=== PATIENT | female | born 2000 ===

== ENCOUNTER → 2022-04-23 | Outpatient (CLI) | payer BC ==
[2022-04-23 17:46] LABS: Basophils # (A) 0.05 X 10*3/uL (0.00-0.10); Basophils % (A) 0.7 %; Eosinophils # (A) 0.11 X 10*3/uL (0.04-0.35); Eosinophils % (A) 1.6 %; HCT 42.8 % (37.2-46.3); HGB 14.1 g/dL (12.0-15.0); Immature Grans, Automated 0.1 %; Lymphocytes # (A) 2.53 X 10*3/uL (0.90-5.00); Lymphocytes % (A) 35.8 %; MCH 31.7 pg (27.0-32.0); MCHC 32.9 g/dL (32.0-37.0); MCV 96.2 fL (80.0-97.0); Monocytes # (A) 0.51 X 10*3/uL (0.20-1.00); Monocytes % (A) 7.2 %; NRBC Per 100 WBC 0 /100 WBCS (0.0-0.0); Neutrophils # (A) 3.85 X 10*3/uL (1.80-7.70); Neutrophils % (A) 54.6 %; Platelet Count 558 X 10*3/uL (140-440); RBC 4.45 X 10*6/uL (4.10-5.20); RDW 11.7 % (11.5-14.5); WBC 7.06 X 10*3/uL (4.50-10.00)
== END | disposition home or self-care (01) ==
LOC: LABWHC1 11:03
PROVIDERS: ATTEND Internal Medicine
DX: D75.839 Thrombocytosis, unspecified (principal)
CPT/HCPCS: 36415; 85025

== ENCOUNTER → 2023-07-10 | Outpatient (CLI) | payer BC ==
--- NOTE | 2023-07-10 16:50 | CT ---
EXAMINATION TYPE: CT abdomen pelvis w con CT DLP: 1343 mGycm, Automated exposure control for dose reduction was used. DATE OF EXAM: 07/10/2023 4:30 PM COMPARISON: None CLINICAL INDICATION:Female, 22 years old with history of R10.30 LOWER ABD PAIN; low abd pain x 1 week . TECHNIQUE: Axial CT abdomen pelvis w con;Sagittal and coronal reformats were created on a separate w orkstation. Contrast used:100 cc mL of Isovue 370 with IV Contrast, (none if empty) Oral contrast used: with Oral Contrast (none if empty) FINDINGS: LOWER CHEST: Unremarkable ABDOMEN LIVER: Unremarkable GALLBLADDER AND BILE DUCTS: Unremarkable. PANCREAS: Unremarkable. SPLEEN: Unremarkable. ADRENAL GLANDS: Unremarkable. KIDNEYS AND URETERS: No evidence of hydronephrosis or renal calculus. The ureters are unremarkable. PELVIS BLADDER: Unremarkable REPRODUCTIVE: Asymmetrically enlarged left ovary compared to the right. Left measuring 25 x 21 mm the right measuring 9 x 16 mm. Multiple follicle changes are seen bilaterally. ABDOMEN & PELVIS STOMACH AND BOWEL: No evidence of bowel obstruction. PERITONEUM/RETROPERITONEUM: No evidence of pneumoperitoneum or free fluid. VASCULATURE: No evidence of aortic aneurysm. There is narrowing of the left renal vein as it crosses the aorta between the aorta and the superior mesenteric artery. With engorgement of the left gonadal vein. Multiple tortuous vessels are seen in the pelvis. MUSCULOSKELETAL: No acute osseous abnormalities LYMPH NODES: No gross evidence for lymphadenopathy. SOFT TISSUE/ABDOMINAL WALL: Unremarkable IMPRESSION: 1. 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 2. No additional acute process visualized.
[2023-07-11 04:25] LABS: ALT 16 U/L (8-44); AST 21 U/L (13-35); Albumin 4.8 g/dL (3.8-4.9); Alkaline Phosphatase 55 U/L (41-126); BUN/Creat Ratio 13.83 Ratio (12.00-20.00); Blood Urea Nitrogen 8.3 mg/dL (9.0-27.0); C Reactive Protein <0.30 mg/dL (0.00-0.80); Calcium 10.4 mg/dL (8.7-10.3); Carbon Dioxide 27.4 mmol/L (21.6-31.8); Chloride 96 mmol/L (96-109); Globulin 3.2 g/dL (1.6-3.3); Glucose 81 mg/dL (70-110); Potassium 4.6 mmol/L (3.5-5.5); Sodium 132 mmol/L (135-145); Total Bilirubin 0.4 mg/dL (0.3-1.2)
[2023-07-11 05:00] LABS: Basophils # (A) 0.08 X 10*3/uL (0.00-0.10); Basophils % (A) 0.8 %; Eosinophils # (A) 0.12 X 10*3/uL (0.04-0.35); Eosinophils % (A) 1.2 %; HCT 41.4 % (37.2-46.3); HGB 13.5 g/dL (12.0-15.0); Lymphocytes # (A) 2.74 X 10*3/uL (0.90-5.00); Lymphocytes % (A) 26.9 %; MCHC 32.6 g/dL (32.0-37.0); MCV 98.1 FL (80.0-97.0); Mean Platelet Volume 9.5 FL (9.5-12.2); Monocytes # (A) 0.66 X 10*3/uL (0.20-1.00); Monocytes % (A) 6.5 %; NRBC Per 100 WBC 0 X 10*3/uL (0.00-0.01); Neutrophils # (A) 6.56 X 10*3/uL (1.80-7.70); Neutrophils % (A) 64.4 %; Platelet Count 559 X 10*3/uL (140-440); RBC 4.22 X 10*6/uL (4.10-5.20); RDW 11.9 % (11.5-14.5); WBC 10.18 X 10*3/uL (4.50-10.00)
[2023-07-11 05:24] LABS: Erythrocyte Sedimentation Rate 12 mm/Hr (0-20)
== END | disposition home or self-care (01) ==
LOC: RADCTMAIN 14:25
PROVIDERS: ATTEND Nurse Practitioner
DX: R10.30 Lower abdominal pain, unspecified (principal)
CPT/HCPCS: 80053; 85652; 85025; 86140; 74177; Q9967

== ENCOUNTER 2023-10-24 20:02 | Emergency (ER) | payer BC ==
[2023-10-24 20:07] VITALS: RESP 18; TEMP 98
[2023-10-24] MEDS: DIPH,PERTUS(ACELL)TETVAC-LF 0.5 ML VIAL IM ONE (20:36)
[2023-10-24] MEDS: RABIES VACCINE (PCEC) 2.5 UNIT KIT IM ONE (20:46)
[2023-10-24] MEDS: RABIES IMM GLOB 300 UNIT/2 ML VIAL IM ONE (20:48)
--- NOTE | 2023-10-24 21:15 | ED ---
Upper Extremity HPI - General Chief Complaint: Extremity Injury, Upper Stated Complaint: animal bite Time Seen by Provider: 10/24/23 20:08 Source: patient Mode of arrival: ambulatory - History of Present Illness Initial Comments: 22-year-old female presenting with chief complaint of mouse bite. Patient had a mouse in her house and was trying to catch it when it bit her on each of her thumbs. She does not know when her last tetanus shot was. She is having some minor discomfort with no other complaints. - Related Data Previous Rx's Medication Instructions Recorded Amoxic-Pot Clav 875-125Mg 1 tab PO Q12HR 7 Days #14 tab 10/24/23 [Augmentin 875-125] Allergies Allergy/AdvReac Type Severity Reaction Status Date / Time No Known Allergies Allergy Verified 10/24/23 20:07 Review of Systems ROS Statement: Those systems with pertinent positive or pertinent negative responses have been documented in the HPI. ROS Other: All systems not noted in ROS Statement are negative. Past Medical History Past Medical History: No Reported History History of Any Multi-Drug Resistant Organisms: None Reported Past Surgical History: No Surgical Hx Reported Past Psychological History: No Psychological Hx Reported Smoking Status: Never smoker Past Alcohol Use History: None Reported Past Drug Use History: None Reported General Exam Limitations: no limitations General appearance: alert, in no apparent distress Head exam: Present: atraumatic, normocephalic Eye exam: Present: normal appearance, EOMI Neck exam: Present: normal inspection Respiratory exam: Absent: respiratory distress Cardiovascular Exam: Present: regular rate Neurological exam: Present: alert, oriented X3 Psychiatric exam: Present: normal affect, normal mood Skin exam: Present: abrasion (Minor bite wounds to the tips of the bilateral thumbs) Course Vital Signs 10/24/23 10/24/23 20:03 21:37 Temperature 98.0 F 98.0 F Pulse Rate 129 H 92 Respiratory 18 18 Rate Blood Pressure 130/84 122/58 O2 Sat by Pulse 97 97 Oximetry Medical Decision Making - Medical Decision Making Was pt. sent in by a medical professional or institution (, PA, POURED CONCRETE WALL TECHNICIAN, urgent care, hospital, or half-way...) When possible be specific @ -No Did you speak to anyone other than the patient for history (EMS, parent, family, police, friend...)? What history was obtained from this source @ -No Did you review nursing and triage notes (agree or disagree)? Why? @ -I reviewed and agree with nursing and triage notes Were old charts reviewed (outside hosp., previous admission, EMS record, old EKG, old radiological studies, urgent care reports/EKG's, half-way records)? Report findings @ -No old charts were reviewed Differential Diagnosis (chest pain, altered mental status, abdominal pain women, abdominal pain men, vaginal bleeding, weakness, fever, dyspnea, syncope, headache, dizziness, GI bleed, back pain, seizure, CVA, palpatations, mental health, musculoskeletal)? @ -Not applicable EKG interpreted by me (3pts min.). @ -As above X-rays interpreted by me (1pt min.). @ -None done CT interpreted by me (1pt min.). @ -None done U/S interpreted by me (1pt. min.). @ -None done What testing was considered but not performed or refused? (CT, X-rays, U/S, labs)? Why? @ -None What meds were considered but not given or refused? Why? @ -None Did you discuss the management of the patient with other professionals (professionals i.e. , PA, POURED CONCRETE WALL TECHNICIAN, lab, RT, psych nurse, social services technician, death surveys coder, teacher, operations officer trust department, casey saw operator)? Give summary @ -No Was smoking cessation discussed for >3mins.? @ -No Was critical care preformed (if so, how long)? @ -No Were there social determinants of health that impacted care today? How? (Homelessness, low income, unemployed, alcoholism, drug addiction, transportation, low edu. Level, literacy, decrease access to med. care, care home, rehab)? @ -No Was there de-escalation of care discussed even if they declined (Discuss DNR or withdrawal of care, Hospice)? DNR status @ -No What co-morbidities impacted this encounter? (DM, HTN, Smoking, COPD, CAD, Cancer, CVA, ARF, Chemo, Hep., AIDS, mental health diagnosis, sleep apnea, morbid obesity)? @ -None Was patient admitted / discharged? Hospital course, mention meds given and route, prescriptions, significant lab abnormalities, going to OR and other pertinent info. @ -22-year-old female presenting with chief complaint of mouse bites to the bilateral thumbs. No other complaints. Her tetanus is updated today. She will be started on Augmentin for animal bite. I explained to the patient that small rodents like mice are very low risk for carrying rabies, the CDC has no record of these animals transmitting rabies and I do not believe that she needs a rabies vaccination today. Shared decision-making was utilized. Patient requests rabies vaccine. Vaccine and immunoglobin are administered and she is provided with a prescription for the remaining doses. Discharged home. Follow- up with PCP. Report back to ER with any new or worsening symptoms. Discussed return parameters and answered all questions. Patient conveyed verbal understanding and agreed to the plan. I discussed this case in detail with my attending Dr. Harris Undiagnosed new problem with uncertain prognosis? @ -No Drug Therapy requiring intensive monitoring for toxicity (Heparin, Nitro, Insulin, Cardizem)? @ -No Were any procedures done? @ -No Diagnosis/symptom? @ -mouse bite Acute, or Chronic, or Acute on Chronic? @ -Acute Uncomplicated (without systemic symptoms) or Complicated (systemic symptoms)? @ -Uncomplicated Side effects of treatment? @ -No Exacerbation, Progression, or Severe Exacerbation? @ -No Poses a threat to life or bodily function? How? (Chest pain, [place], [place], pneumonia, PE, COPD, DKA, ARF, appy, cholecystitis, CVA, Diverticulitis, Homicidal, Suicidal, threat to staff... and all critical care pts) @ -No Disposition Clinical Impression: Bitten by mouse Disposition: HOME SELF-CARE Condition: Good Instructions (If sedation given, give patient instructions): Animal Bite (ED) Additional Instructions: Follow-up with your PCP. Report back to ER with any new or worsening symptoms. Prescriptions: Amoxic-Pot Clav 875-125Mg [Augmentin 875-125] 1 tab PO Q12HR 7 Days #14 tab Is patient prescribed a controlled substance at d/c from ED?: No Referrals: Osei Gresham DO [Primary Care Provider] - 1-2 days Time of Disposition: 21:15
[2023-10-24 21:38] VITALS: BP 122/58; PULSE 92
== END 2023-10-24 21:37 | disposition home or self-care (01) ==
LOC: EC 20:02
DX: S61.052A Open bite of left thumb without damage to nail, initial encounter (principal); S61.051A Open bite of right thumb without damage to nail, initial encounter; Z23 Encounter for immunization; W53.01XA Bitten by mouse, initial encounter
CPT/HCPCS: 90377; 90471; 90472; 90675; 90715; 96372; 99283